=== PATIENT | female | born 1990 | race Caucasian/White ===

== ENCOUNTER 2017-03-04 19:42 | Emergency (ER) | payer MEDICAID, OTHER ==
[2017-03-04] MEDS ORDERED: ACETAMINOPHEN 325 MG TABLET ONE (20:48)
[2017-03-04 20:54] LABS: PH,URINE 6.5 (5.0-8.0); SPECIFIC GRAVITY 1.015 (1.001-1.030); URINE BILIRUBIN NEGATIVE (NEGATIVE); URINE BLOOD 2+ (NEGATIVE); URINE GLUCOSE (UA) NEGATIVE (NEGATIVE); URINE LEUKOCYTE ESTERASE NEGATIVE (NEGATIVE); URINE NITRITE NEGATIVE (NEGATIVE); URINE PROTEIN NEGATIVE (NEGATIVE); URINE UROBILINOGEN NORMAL (0-1 mg/dl)
[2017-03-04 20:55] LABS: ABSOLUTE NEUTROPHIL COUNT 5.3 K/mm3 (1.8-7.7); BASO % 0.3 % (0.2-1.0); EOS # 0.1 (0.0-0.5); EOS % 1.2 % (0.9-2.9); HEMATOCRIT 42.9 % (37.0-47.0); HEMOGLOBIN 14.1 gm/l (12.0-16.0); IMM NEUT% 0.3 % (0-1); LYMPH # 1.4 (1.0-4.8); LYMPH % 19.3 % (15-45); MEAN CELL VOLUME 86.7 fl (81.0-99.0); MEAN CORPUSCULAR HEMOGLOBIN 28.5 pg (27.0-31.0); MEAN CORPUSCULAR HGB CONC 32.9 g/dl (33.0-37.0); MEAN PLATELET VOLUME 9.2 fl (7.4-10.4); MONO # 0.4 (0.0-0.8); MONO % 5.6 % (4-12); NEUT % 73.3 % (43-75); PLATELET COUNT 193 K/mm3 (130-400); RED CELL DISTRIBUTION WIDTH 12.6 % (11.5-14.5)
[2017-03-04 21:02] LABS: URINE APPEARANCE CLEAR; URINE COLOR YELLOW
[2017-03-04 21:11] LABS: URINE RBC 0-1 /hpf; URINE WBC 0-1 /hpf
[2017-03-04 21:12] LABS: URINE BACTERIA 1+
[2017-03-04 21:13] LABS: ALB/GLOB RATIO 1.3 (>1.0); ALBUMIN 4.2 gm/dL (3.5-5.7); CALCIUM 9.2 mg/dL (8.6-10.3)
[2017-03-04 21:15] LABS: C-REACTIVE PROTEIN 1.1 mg/dl (<1.0)
[2017-03-04] MEDS ORDERED: ONDANSETRON 4 MG ODT TAB ONE (21:31)
== END 2017-03-04 21:43 | disposition home or self-care (01) ==
LOC: ED 19:42
DX: R10.9 Unspecified abdominal pain (principal); R11.2 Nausea with vomiting, unspecified
CPT/HCPCS: 83690; 84703; 86141; 85025; 80053; 81001; 99283 ×2; A9270 ×2